=== PATIENT | female | born 1995 | race Caucasian/White ===

== ENCOUNTER 2023-02-14 14:41 | Emergency (ER) | payer MEDICAID ==
[~2023-02-14] VITALS: Ht 165.1 cm; Wt 102.5 kg
--- NOTE | 2023-02-14 14:50 | NUR ---
PT AMB TO BED 8
[2023-02-14 14:56] VITALS: BP 118/64
--- NOTE | 2023-02-14 15:06 | NUR ---
ODETTE LEUNG AT BEDSIDE FOR EVALUATION
[2023-02-14] MEDS ORDERED: METOCLOPRAMIDE 10 MG/2 ML INJ VIAL IM ONE (15:15)
[2023-02-14] MEDS ORDERED: ACETAMINOPHEN EXTRA STRENGTH 500 MG TAB PO ONE (15:15)
[2023-02-14 15:55] LABS: APPEARANCE,URINE CLEAR (CLEAR); BILIRUBIN,URINE NEGATIVE (NEGATIVE); BLOOD, URINE TRACE-I (NEGATIVE); COLOR,URINE YELLOW (YELLOW); LEUKOCYTE ESTERASE ,URINE TRACE (NEGATIVE); NITRITE, URINE NEGATIVE (NEGATIVE); PH,URINE 8.5 (5.0-9.0); UGLUCOSE NEGATIVE (NEGATIVE)
--- NOTE | 2023-02-14 15:55 | NUR ---
Note deep in EDM - 02/14/23 at 1925 by [email or web address] Patient discharged with v/s stable. Written and verbal after care instructions given and explained. Patient alert, oriented and verbalized understanding of instructions. Ambulatory with steady gait. All questions addressed prior to discharge. ID band removed. Patient advised to follow up with PMD. Rx of KEFLEX, PYRIDOXINE given. Opportunity to ask questions provided and answered.
[2023-02-14 16:17] LABS: ANION GAP 13.7 (8-16); CARBON DIOXIDE 23.9 mmol/L (21-32); CREATININE 0.7 mg/dL (0.6-1.3); POTASSIUM 3.6 mmol/L (3.5-5.1)
[2023-02-14 16:21] LABS: BASOPHILS % (AUTO) 0.3 % (0.0-2.0); HEMATOCRIT 31.1 % (36-48); LYMPHOCYTES # (AUTO) 2.2 K/uL (2.5-16.5); LYMPHOCYTES % (AUTO) 17.6 % (20.5-51.1); MEAN CORPUSCULAR HEMOGLOBIN 25 pg (27-31); MEAN CORPUSCULAR HGB CONC 32 g/dL (33-37); MEAN CORPUSCULAR VOLUME 76.5 fL (80-94); MONOCYTES # (AUTO) 0.6 K/uL (0.8-1.0); MONOCYTES % (AUTO) 4.6 % (1.7-9.3); NEUTROPHILS # (AUTO) 9.8 K/uL (1.8-7.7); NEUTROPHILS % (AUTO) 77.5 % (42.2-75.2); PLATELET COUNT (AUTO) 227 K/uL (140-450); RED BLOOD CELL COUNT(AUTO) 4.06 MIL/uL (4.20-5.40); RED CELL DISTRIBUTION WIDTH 17.1 % (11.6-13.7); WHITE BLOOD COUNT (AUTO) 12.7 K/uL (4.8-10.8)
[2023-02-14 16:58] LABS: ALBUMIN 3.3 g/dL (3.4-5.0); TOTAL BILIRUBIN 0.8 mg/dL (0.0-1.0)
--- NOTE | 2023-02-14 17:06 | NUR ---
27 Y/O FEMALE BIB SPOUSE FROM HOME, C/O HEADACHE, ABDOMINAL PAIN, WITH N/V FOR 2 DAYS. PT STATES SHE HAS NOT SEEN AN OB AT THIS TIME AND STATES "I THINK IM 1 MONTH ". DENIES VAGINAL BLEEDING OR CLOTS.
[2023-02-14 17:12] LABS: BILIRUBIN,DIRECT 0.1 mg/dL (0.0-0.3)
[2023-02-14] MEDS ORDERED: PYRI25TA15 PO (17:43)
[2023-02-14] MEDS ORDERED: CEPH-588 PO (17:43)
[2023-02-14 17:55] VITALS: BP 105/63
--- NOTE | 2023-02-14 17:55 | NUR ---
Patient discharged with v/s stable. Written and verbal after care instructions given and explained. Patient alert, oriented and verbalized understanding of instructions. Ambulatory with steady gait. All questions addressed prior to discharge. ID band removed. Patient advised to follow up with PMD. Rx of KEFLEX, PYRIDOXINE given. Opportunity to ask questions provided and answered.
--- NOTE | 2023-02-14 18:06 | NUR ---
The patient's care was reviewed and supervised by ED Agency Nurse 8, RN, RN.
== END 2023-02-14 17:55 | disposition home or self-care (01) ==
LOC: MED 14:41
DX: O21.8 Other vomiting complicating pregnancy (principal); O26.899 Other specified pregnancy related conditions, unspecified trimester; R06.02 Shortness of breath; R51.9 Headache, unspecified; R50.9 Fever, unspecified; R05.9 Cough, unspecified; R10.9 Unspecified abdominal pain
CPT/HCPCS: 36415; 80048; 80076; 81001; 81025; 84702; 85025; 87086; 87426; 87804; 96372; 99283; J2765

== ENCOUNTER 2023-03-01 11:37 | Emergency (ER) | payer MEDICAID ==
[~2023-03-01] VITALS: Ht 165.1 cm; Wt 99.8 kg
[~2023-03-01 11:37] MED LIST: CEPH-588 PO; PYRI25TA15 PO
[2023-03-01 11:42] VITALS: BP 100/67
[2023-03-01 13:01] LABS: BASOPHILS % (AUTO) 0.3 % (0.0-2.0); EOSINOPHILS # (AUTO) 0.1 K/uL (0-0.4); EOSINOPHILS % (AUTO) 0.8 % (0.0-4.0); HEMATOCRIT 32.6 % (36-48); HEMOGLOBIN 10.5 g/dL (12.0-16.0); LYMPHOCYTES # (AUTO) 2.5 K/uL (2.5-16.5); LYMPHOCYTES % (AUTO) 24.3 % (20.5-51.1); MEAN CORPUSCULAR HEMOGLOBIN 25 pg (27-31); MEAN CORPUSCULAR HGB CONC 32 g/dL (33-37); MEAN CORPUSCULAR VOLUME 78.5 fL (80-94); MONOCYTES # (AUTO) 0.5 K/uL (0.8-1.0); MONOCYTES % (AUTO) 5.4 % (1.7-9.3); NEUTROPHILS % (AUTO) 69.2 % (42.2-75.2); PLATELET COUNT (AUTO) 233 K/uL (140-450); RED BLOOD CELL COUNT(AUTO) 4.16 MIL/uL (4.20-5.40); RED CELL DISTRIBUTION WIDTH 17.8 % (11.6-13.7); WHITE BLOOD COUNT (AUTO) 10.1 K/uL (4.8-10.8)
[2023-03-01 13:06] LABS: APPEARANCE,URINE CLEAR (CLEAR); BILIRUBIN,URINE NEGATIVE (NEGATIVE); BLOOD, URINE 2+ (NEGATIVE); COLOR,URINE YELLOW (YELLOW); LEUKOCYTE ESTERASE ,URINE 1+ (NEGATIVE); NITRITE, URINE NEGATIVE (NEGATIVE); UGLUCOSE NEGATIVE (NEGATIVE)
[2023-03-01 13:19] LABS: RBC,URINE 0-5 /HPF (0-5)
--- NOTE | 2023-03-01 14:30 | NUR ---
vaginal bleeding started today, 10 weeks
[2023-03-01 14:31] VITALS: BP 100/67
--- NOTE | 2023-03-01 14:31 | NUR ---
Patient discharged with v/s stable. Written and verbal after care instructions given and explained. Patient verbalized understanding. Ambulatory with steady gait. All questions addressed prior to discharge. Advised to follow up with PMD.
== END 2023-03-01 14:31 | disposition home or self-care (01) ==
LOC: MED 11:37
DX: O20.0 Threatened abortion (principal); Z3A.10 10 weeks gestation of pregnancy; Z79.899 Other long term (current) drug therapy
CPT/HCPCS: 36415; 76801; 81001; 81025; 84702; 85025; 86900; 86901; 87086; 99284

== ENCOUNTER 2023-08-14 20:40 | Observation (INO) | payer MEDICAID, OTHER ==
[~2023-08-14] VITALS: Ht 165.1 cm; Wt 111.1 kg
[2023-08-14 21:19] VITALS: BP 118/77; PULSE 95; RESP 18; TEMP 97.9
[2023-08-14 22:10] LABS: BILIRUBIN,URINE NEGATIVE (NEGATIVE); BLOOD, URINE 1+ (NEGATIVE); COLOR,URINE YELLOW (YELLOW); LEUKOCYTE ESTERASE ,URINE 2+ (NEGATIVE); NITRITE, URINE NEGATIVE (NEGATIVE); PROTEIN,URINE NEGATIVE (NEGATIVE); UGLUCOSE NEGATIVE (NEGATIVE); UROBILINOGEN,URINE 0.2 EU/dL (0.2 - 1)
[2023-08-14] MEDS ORDERED: PREN-543 PO (22:10)
[2023-08-14] MEDS ORDERED: FERR-212 PO (22:10)
[2023-08-14 22:20] LABS: APPEARANCE,URINE HAZY (CLEAR)
[2023-08-14 22:31] LABS: BACTERIA,URINE >30 (MANY) /HPF (None Seen); MUCUS,URINE 1+ /LPF (None Seen); SQUAMOUS EPITHELIAL CELL,UR 0-3 (FEW) /LPF (0-3 (FEW)); WBC,URINE >25 (MANY) /HPF (0-5)
== END 2023-08-14 23:00 | disposition home or self-care (01) ==
LOC: MED 21:24 → MLD 21:25
PROVIDERS: ADMIT Obstetrics & Gynecology; ATTEND Obstetrics & Gynecology
DX: O26.893 Other specified pregnancy related conditions, third trimester (principal); R42 Dizziness and giddiness; Z3A.34 34 weeks gestation of pregnancy
CPT/HCPCS: 81001; 87086; 99284; G0378

== ENCOUNTER 2024-01-28 20:56 | Emergency (ER) | payer OTHER ==
[~2024-01-28] VITALS: Ht 165.1 cm; Wt 106.1 kg
[~2024-01-28 20:56] MED LIST changes: -CEPH-588 PO; +FERR-212 PO; +PREN-543 PO; -PYRI25TA15 PO
[2024-01-28 21:31] VITALS: BP 115/71; PULSE 98; RESP 18; TEMP 98.6; O2SAT 100
[2024-01-29 00:01] LABS: BASOPHILS # (AUTO) 0.1 K/uL (0.00-0.22); BASOPHILS % (AUTO) 0.4 % (0.0-2.0); EOSINOPHILS # (AUTO) 0.2 K/uL (0-0.4); EOSINOPHILS % (AUTO) 1.5 % (0.0-4.0); HEMATOCRIT 37.4 % (36-48); HEMOGLOBIN 12.7 g/dL (12.0-16.0); LYMPHOCYTES # (AUTO) 3.2 K/uL (2.5-16.5); LYMPHOCYTES % (AUTO) 24.2 % (20.5-51.1); MEAN CORPUSCULAR HEMOGLOBIN 31 pg (27-31); MEAN CORPUSCULAR HGB CONC 34 g/dL (33-37); MEAN CORPUSCULAR VOLUME 90.1 fL (80-94); MONOCYTES # (AUTO) 0.7 K/uL (0.8-1.0); MONOCYTES % (AUTO) 5.6 % (1.7-9.3); NEUTROPHILS # (AUTO) 9.1 K/uL (1.8-7.7); NEUTROPHILS % (AUTO) 68.3 % (42.2-75.2); PLATELET COUNT (AUTO) 154 K/uL (140-450); RED BLOOD CELL COUNT(AUTO) 4.15 MIL/uL (4.20-5.40); RED CELL DISTRIBUTION WIDTH 12.8 % (11.6-13.7); WHITE BLOOD COUNT (AUTO) 13.3 K/uL (4.8-10.8)
[2024-01-29 00:23] LABS: ANION GAP 16.3 (8-16); CALCIUM 8.6 mg/dL (8.5-10.1); CARBON DIOXIDE 23.4 mmol/L (21-32); CREATININE 0.8 mg/dL (0.6-1.3); POTASSIUM 3.7 mmol/L (3.5-5.1)
[2024-01-29 00:24] LABS: INR 0.93 (0.8-1.2); PROTHROMBIN TIME 9.8 secs (10.8-13.4)
[2024-01-29 00:28] LABS: ALBUMIN 3.5 g/dL (3.4-5.0); BILIRUBIN,DIRECT 0.1 mg/dL (0.0-0.3); TOTAL BILIRUBIN 0.4 mg/dL (0.0-1.0); TOTAL PROTEIN, SERUM 7.6 g/dL (6.4-8.2)
[2024-01-29] MEDS ORDERED: MEDR10TA PO (02:10)
[2024-01-29 02:15] VITALS: BP 118/71; PULSE 92; RESP 18; TEMP 98; O2SAT 100
== END 2024-01-29 02:15 | disposition home or self-care (01) ==
LOC: MED 20:56
DX: N93.8 Other specified abnormal uterine and vaginal bleeding (principal); F41.9 Anxiety disorder, unspecified; Z79.899 Other long term (current) drug therapy
CPT/HCPCS: 36415; 76830; 80048; 80076; 85025; 85610; 85730; 86900; 86901; 99284

== ENCOUNTER 2024-03-01 20:52 | Emergency (ER) | payer OTHER ==
[~2024-03-01] VITALS: Ht 165.1 cm; Wt 104.3 kg
[~2024-03-01 20:52] MED LIST changes: +MEDR10TA PO
[2024-03-01 21:00] VITALS: BP 127/72; PULSE 94; RESP 16; TEMP 98.3; O2SAT 100
[2024-03-01 22:56] LABS: BASOPHILS % (AUTO) 0.4 % (0.0-2.0); EOSINOPHILS # (AUTO) 0.4 K/uL (0-0.4); EOSINOPHILS % (AUTO) 3.5 % (0.0-4.0); HEMATOCRIT 27.1 % (36-48); HEMOGLOBIN 9.2 g/dL (12.0-16.0); LYMPHOCYTES # (AUTO) 3.8 K/uL (2.5-16.5); LYMPHOCYTES % (AUTO) 34.8 % (20.5-51.1); MEAN CORPUSCULAR HEMOGLOBIN 30 pg (27-31); MEAN CORPUSCULAR HGB CONC 34 g/dL (33-37); MEAN CORPUSCULAR VOLUME 87.9 fL (80-94); NEUTROPHILS # (AUTO) 5.6 K/uL (1.8-7.7); NEUTROPHILS % (AUTO) 52.3 % (42.2-75.2); PLATELET COUNT (AUTO) 194 K/uL (140-450); RED BLOOD CELL COUNT(AUTO) 3.08 MIL/uL (4.20-5.40); RED CELL DISTRIBUTION WIDTH 12.9 % (11.6-13.7); WHITE BLOOD COUNT (AUTO) 10.8 K/uL (4.8-10.8)
[2024-03-01 22:59] VITALS: BP 114/67; PULSE 95; RESP 17; O2SAT 100
[2024-03-01 23:15] LABS: ALBUMIN 3.2 g/dL (3.4-5.0); ANION GAP 10.3 (8-16); CALCIUM 8.5 mg/dL (8.5-10.1); CARBON DIOXIDE 27.8 mmol/L (21-32); CREATININE 0.7 mg/dL (0.6-1.3); POTASSIUM 4.1 mmol/L (3.5-5.1); TOTAL BILIRUBIN 0.4 mg/dL (0.0-1.0); TOTAL PROTEIN, SERUM 6.8 g/dL (6.4-8.2)
[2024-03-02] MEDS ORDERED: FERR325E14 PO (00:39)
== END 2024-03-02 00:53 | disposition home or self-care (01) ==
LOC: MED 20:52
DX: N93.9 Abnormal uterine and vaginal bleeding, unspecified (principal); D64.9 Anemia, unspecified; R42 Dizziness and giddiness; R11.0 Nausea; F17.210 Nicotine dependence, cigarettes, uncomplicated; Z79.899 Other long term (current) drug therapy
CPT/HCPCS: 36415; 80053; 84703; 85025; 99283